=== PATIENT | female | born 1970 | race Caucasian/White ===

== ENCOUNTER 2020-12-30 21:34 | Emergency (ER) | payer SELFPAY ==
[~2020-12-30] VITALS: Ht 157.5 cm; Wt 83.6 kg
[2020-12-30 21:57] VITALS: TEMP 98.4
[2020-12-31] MEDS ORDERED: AMOXICILLIN 8751 TAB PO (02:09)
[2020-12-31 02:25] VITALS: BP 144/70; PULSE 68
== END 2020-12-31 02:25 | disposition home or self-care (01) ==
LOC: COL.ER 21:34
DX: S61.451A Open bite of right hand, initial encounter (principal); S61.551A Open bite of right wrist, initial encounter; W54.0XXA Bitten by dog, initial encounter

== ENCOUNTER → 2021-01-14 | Outpatient (CLI) | payer SELFPAY ==
[~2021-01-14] MED LIST: AMOXICILLIN 8751 TAB PO
[2021-01-14 10:46] VITALS: BP 149/99; PULSE 83; TEMP 98.7
== END ==
LOC: COL.ER 10:33
DX: Z48.02 Encounter for removal of sutures (principal)

== ENCOUNTER → 2022-01-28 | Outpatient (CLI) | payer OTHER | LOC: MC.RAD 11:15 | DX: N64.59 Other signs and symptoms in breast (principal) ==